=== PATIENT | female | born 1950 | race Caucasian/White ===

== ENCOUNTER 2018-07-26 05:20 | Day surgery (SDC) | payer OTHER ==
[~2018-07-26 05:20] MED LIST: ALPRAZOLAM2 M1 PO; CITALOPRAM HBR20 MG PO; ESTAZOLAM2 MG PO; PRILOSEC10 MG PO; RISPERDAL M-TAB1 MG PO; TIROSINT25 MCG PO; ZOCOR40 MG PO
[2018-07-26] MEDS ORDERED: ULTRACET PO (11:52)
== END 2018-07-26 14:00 | disposition home or self-care (01) ==
LOC: CIR.AMB 05:20
DX: N39.41 Urge incontinence (principal); N32.81 Overactive bladder